=== PATIENT | female | born 1980 | race Caucasian/White ===

== ENCOUNTER 2017-02-07 20:15 | Emergency (ER) | payer MEDICAID | END 2017-02-07 20:36 | disposition home or self-care (01) | LOC: D.ER 20:15 | DX: Z76.0 Encounter for issue of repeat prescription (principal); F41.9 Anxiety disorder, unspecified; F31.89 Other bipolar disorder; F17.200 Nicotine dependence, unspecified, uncomplicated ==

== ENCOUNTER 2017-03-31 16:37 | Emergency (ER) | payer MEDICAID | END 2017-03-31 19:42 | disposition home or self-care (01) | LOC: D.ER 16:37 | DX: S01.81XA Laceration without foreign body of other part of head, initial encounter (principal); Y04.2XXA Assault by strike against or bumped into by another person, initial encounter; Y93.89 Activity, other specified; Y92.019 Unspecified place in single-family (private) house as the place of occurrence of the external cause; S40.811A Abrasion of right upper arm, initial encounter; F17.200 Nicotine dependence, unspecified, uncomplicated ==

== ENCOUNTER 2017-04-08 14:24 | Emergency (ER) | payer MEDICAID | END 2017-04-08 15:32 | disposition home or self-care (01) | LOC: D.ER 14:24 | DX: S01.81XD Laceration without foreign body of other part of head, subsequent encounter (principal); X58.XXXD Exposure to other specified factors, subsequent encounter; Y92.029 Unspecified place in mobile home as the place of occurrence of the external cause; Z48.02 Encounter for removal of sutures ==

== ENCOUNTER 2017-11-05 08:50 | Emergency (ER) | payer MEDICAID ==
[2017-11-05 09:33] LABS: HCG URINE NEGATIVE (NEGATIVE)
[2017-11-05 09:35] LABS: APPEARANCE CLEAR (CLEAR); BACTERIA FEW /hpf (NONE SEEN); BILIRUBIN NEGATIVE (NEGATIVE); COLOR DK YELLOW (YELLOW); GLUCOSE NEGATIVE (NEGATIVE); HYALINE CAST OCC /lpf (NONE SEEN); KETONE SMALL mg/dL (NEGATIVE); MUCUS >1+ /lpf (NONE SEEN); NITRITE NEGATIVE (NEGATIVE); PROTEIN NEGATIVE (NEGATIVE); RED CELLS - URINE 0-5 /hpf (0-5); UROBILINOGEN NORMAL (NORMAL)
[2017-11-05 09:42] LABS: UDS - AMPHET POSITIVE QUAL (NEGATIVE); UDS - BARB NEGATIVE QUAL (NEGATIVE); UDS - BENZO POSITIVE QUAL (NEGATIVE); UDS - COCAINE POSITIVE QUAL (NEGATIVE); UDS - OPIATE NEGATIVE QUAL (NEGATIVE); UDS - PCP NEGATIVE QUAL (NEGATIVE); UDS - THC POSITIVE QUAL (NEGATIVE)
== END 2017-11-05 10:06 | disposition home or self-care (01) ==
LOC: D.ER 08:50
PROVIDERS: Emergency Medicine
DX: F15.10 Other stimulant abuse, uncomplicated (principal); F14.10 Cocaine abuse, uncomplicated; F23 Brief psychotic disorder; F17.200 Nicotine dependence, unspecified, uncomplicated; Z86.59 Personal history of other mental and behavioral disorders